=== PATIENT | male | born 1985 | race Caucasian/White ===

== ENCOUNTER → 2021-09-25 12:12 | Outpatient (BNVA) | payer MEDICARE, SELFPAY | PROVIDERS: Family Provider Nurse Practitioner Family; PCP Family Medicine; Visit Provider Family Medicine | DX: K92.1 Melena (principal); F10.10 Alcohol abuse, uncomplicated; R07.9 Chest pain, unspecified; Z82.49 Family history of ischemic heart disease and other diseases of the circulatory system; Z68.21 Body mass index [BMI] 21.0-21.9, adult; F17.210 Nicotine dependence, cigarettes, uncomplicated; Z13.6 Encounter for screening for cardiovascular disorders | CPT/HCPCS: 80053; 80061; 84443; 85025 ==

== ENCOUNTER 2023-12-08 13:16 | Observation (INO) | payer MEDICARE, MEDICAID, SELFPAY ==
[2023-12-08] VITALS (16 sets, daily range): BP systolic 144–181; BP diastolic 70–95; PULSE 50–76; RESP 16–19; TEMP 36.7–37.7; O2SAT 92–100; BMI 25.4
--- NOTE | 2023-12-08 13:19 | W.ED.LOWEXIN ---
Documented by User: RITA Lindsey 12/08/23 17:18 HPI - Extremity Injury (Lower) General: Chief Complaint: Wound/Laceration Stated Complaint: LEFT KNEE LAC S/P CHAIN SAW Time Seen by Provider: 12/08/23 13:19 History of Present Illness: 38-year-old male patient comes in with injury to the right knee. Patient has an approximate 7 cm laceration to the proximal aspect of the right knee. Injury occurred prior to arrival about 1 to 2 hours ago. Patient was brought in by EMS. Patient has IV established in the left AC and has been given a total of 200 mcg of fentanyl. Patient is resting well. Patient endorses the use of marijuana, tobacco, and alcohol. Patient does have a history of seizure disorder but has not had seizure in 4 years and is on no medications at this time. Review of Systems General: Reports: 10 or more systems reviewed and unremarkable except in HPI and below Skin/Breast: Reports: new lesions (right leg laceration) [facility]: Medical History (Updated 09/25/21 @ 13:02 by Michelle Rosado MD) AA (alcohol abuse) Seizure disorder Anxiety Depression Family History Father Hypertension Stroke Social History Smoking and tobacco/nicotine status: current every day tobacco/nicotine user (1/2 PPD) cigarettes Alcohol intake: current Alcohol intake frequency: 3 or more drinks per day Alcohol type: hard liquor Substance/Drug Use: current Substance/Drug use frequency: few times a week Other substance/drug use details: has medical [facility] Caregiver/support person: Yes Lives independently: Yes Household members: other Marital status: Single service: No Current occupational status: employed Current occupation: self employeed Current gender identity: Male Physical Exam Const: COMMON NORMALS: alert HENMT: COMMON NORMALS: normocephalic HEAD & SCALP: normocephalic Neck/C-Spine: COMMON NORMALS: full ROM Chest: COMMONS NORMALS: normal palpation of entire chest wall Resp: COMMON NORMALS: normal respiratory effort Cardio: COMMON NORMALS: regular rate RATE: regular rate GI: COMMON NORMALS: Soft to palpation PALPATION: Yes Soft to palpation Extremity: COMMON NORMALS: full ROM RIGHT LOWER EXTREMITY: Yes upper leg (7 cm laceration anterior distal) Neuro: SENSORIUM/ORIENTATION: Yes alert Skin: COMMON NORMALS: turgor normal GENERAL SKIN EXAM: turgor normal Procedures Laceration Laceration 1: Site: lower extremity Side (If applicable): right Size (cm): 7 Description: linear Depth: involves muscle layer Local Anesthetic: lidocaine 1% and with epi Amount of anesthesia used (mL): 14 Pre-repair: wound explored, irrigated extensively and deep structures intact (Superficial muscle, possible lateral patellar tendon) Skin layer closed with: nylon Size (cm): 4-0 Number of sutures: 18 Technique: simple, interrupted and horizontal mattress Course Vital Signs: Vital signs: Vital Signs Temperature 98.1 F 12/08/23 13:23 Pulse Rate 50 L 12/08/23 16:45 Respiratory Rate 19 H 12/08/23 16:35 Blood Pressure 155/95 12/08/23 16:45 Pulse Oximetry 97 12/08/23 16:45 Oxygen Delivery Me thod Room Air 12/08/23 16:45 MDM - Extremity Injury (Lower) Medical Decision Making 38-year-old male patient comes in for injury to the right proximal knee area. The horizontal lacerations approximate 7 cm. Patient was using his chainsaw this afternoon when it kicked back causing the injury. Patient has 2 areas of deep tissue injury 1 notes to be superficial to the muscle, other is lateral superficial to the patellar tendon area. Differential diagnosis includes but not limited to fracture, laceration, foreign body, open joint, tendon injury. X-ray noted deep suprapatellar wound with a trace of intra-articular air recommending CT for further evaluation. 1640, CT confirmed open joint, discussed with Dr. Mathew who agreed to see patient and take to surgery to irrigate the joint and repair. Patient been given 2 g of cefazolin and will be admitted and go to the OR for further evaluation and treatment. 1642, Dr. Heredia, ER attending, consulted for admission orders. Chart reviewed and patient discussed with midlevel. Agree with assessment and plan. Lab Data Radiology Impressions Knee X-Ray 12/08/23 13:23 IMPRESSION: 1. Deep suprapatellar wound with possible trace intra-articular air concerning for open joint. Consider correlation with CT for further detail. Orthopedic evaluation is recommended. Knee CT 12/08/23 14:49 IMPRESSION: 1. Deep laceration of the suprapatellar soft tissues with intra-articular air compatible with open joint. Orthopedic evaluation is recommended. Discharge Plan Discharge Admit Provider: Raymon Mathew Condition: Stable Coding Level of Care Code ED [facility] [employer] for [facility] Fwd Documented by User: Aleksandar Heredia DO 12/08/23 16:51 HPI - Extremity Injury (Lower) General: Chief Complaint: Wound/Laceration Stated Complaint: LEFT KNEE LAC S/P CHAIN SAW Time Seen by Provider: 12/08/23 13:19 PFSH ED PFSH: Medical History (Updated 09/25/21 @ 13:02 by Michelle Rosado MD) AA (alcohol abuse) Seizure disorder Anxiety Depression Family History Father Hypertension Stroke Social History Smoking and tobacco/nicotine status: current every day tobacco/nicotine user (1/2 PPD) cigarettes Alcohol intake: current Alcohol intake frequency: 3 or more drinks per day Alcohol type: hard liquor Substance/Drug Use: current Substance/Drug use frequency: few times a week Other substance/drug use details: has medical [facility] Caregiver/support person: Yes Lives independently: Yes Household members: other Marital status: Single service: No Current occupational status: employed Current occupation: self employeed Current gender identity: Male Course Vital Signs: Vital signs: Vital Signs Temperature 98.1 F 12/08/23 13:23 Pulse Rate 50 L 12/08/23 16:45 Respiratory Rate 19 H 12/08/23 16:35 Blood Pressure 155/95 12/08/23 16:45 Pulse Oximetry 97 12/08/23 16:45 Oxygen Delivery Me thod Room Air 12/08/23 16:45 MDM - Extremity Injury (Lower) Medical Decision Making Chart reviewed and patient discussed with midlevel. Agree with assessment and plan. Lab Data Radiology Impressions Knee X-Ray 12/08/23 13:23 IMPRESSION: 1. Deep suprapatellar wound with possible trace intra-articular air concerning for open joint. Consider correlation with CT for further detail. Orthopedic evaluation is recommended. Knee CT 12/08/23 14:49 IMPRESSION: 1. Deep laceration of the suprapatellar soft tissues with intra-articular air compatible with open joint. Orthopedic evaluation is recommended. All radiology interpretation(s) finalized by discharge Discharge Plan Discharge Admit Provider: Raymon Mathew Condition: Stable Coding Level of Care Code ED [facility] [employer] for Kishan Hsu
--- NOTE | 2023-12-08 13:23 | XRR_ITS ---
PROCEDURE INFORMATION: Exam: XR Right Knee Exam date and time: 12/08/2023 1:42 PM Age: 38 years old Clinical indication: Injury or trauma; Other: Cut by chain saw; Laceration; Patella or knee; Right; Foreign body involvement not specified TECHNIQUE: Imaging protocol: Radiologic exam of the right knee. Views: 3 views. COMPARISON: No relevant prior studies available. FINDINGS: Bones/joints: No evidence of acute fracture or subluxation. No evidence of joint effusion. Questionable trace intra-articular air. Soft tissues: Deep laceration of the suprapatellar volar soft tissues measuring up to approximately 5.5 cm in diameter. XR/XR knee RT 3V* [id number] IMPRESSION: 1. Deep suprapatellar wound with possible trace intra-articular air concerning for open joint. Consider correlation with CT for further detail. Orthopedic evaluation is recommended.
--- NOTE | 2023-12-08 13:41 | PC.PHAR ---
pt states he takes care of his own medications-pt states he takes fluoxetine 40mg four or five times a week ext shows last filled 02/09/23 90d/s 40mg daily-pt states takes no other prescription medications
[2023-12-08] MEDS: tetanus-dipt-pertussis 0.5 mL SDV IM (13:42)
[2023-12-08] MEDS: lidocaine-epi 1% 20 mL INJ INJECTION (13:52)
--- NOTE | 2023-12-08 13:52 | PC.NURSE ---
LIDOCAINE ADMINISTERED BY RITA RESENDIZ.
--- NOTE | 2023-12-08 14:49 | CTR_ITS ---
PROCEDURE INFORMATION: Exam: CT Right Lower Extremity With Contrast, Knee Exam date and time: 12/08/2023 3:33 PM Age: 38 years old Clinical indication: Injury or trauma; Other: Chainsaw; Laceration; Patella or knee; Right; Foreign body involvement not specified; Additional info: Injury, possible open joint TECHNIQUE: Imaging protocol: CT of the right lower extremity with intravenous contrast was performed. Exam focused on the knee. Radiation optimization: All CT scans at this facility use at least one of these dose optimization techniques: automated exposure control; mA and/or kV adjustment per patient size (includes targeted exams where dose is matched to clinical indication); or iterative reconstruction. Contrast material: OMNI 350; Contrast volume: 75 ml; Contrast route: INTRAVENOUS (IV); COMPARISON: CR (LOW EXM, ) 12/08/2023 1:42 PM RADIATION DOSE METRICS: Total DLP (mGy-cm): 376.14 FINDINGS: Bones/joints: There are droplets of intra-articular air compatible with open joint (for example, image 40 of series 5). Trace-small effusion. No evidence of fracture or subluxation. Soft tissues: Laceration of the suprapatellar soft tissues involving the vastus medialis. No discrete fluid collection or hematoma. There appears to have been interval closure of the wound. CT/CT knee RT w con [id number] IMPRESSION: 1. Deep laceration of the suprapatellar soft tissues with intra-articular air compatible with open joint. Orthopedic evaluation is recommended.
[2023-12-08] MEDS: fentaNYL 50 mcg/mL INJ 2mL 75 MCG IVP (15:26)
[2023-12-08] MEDS: ceFAZolin 2,000 MG in sodium chloride 0.9% (plus) 50 ML 100 MG IV (15:41)
[2023-12-08] MEDS: HYDROmorphone 1 mg/mL INJ 1 mL IVP (16:35)
[2023-12-08] MEDS: diphenhydrAMINE 50 mg/mL SDV 1mL 25 MG IVP (16:37)
--- NOTE | 2023-12-08 17:03 | PM.HP ---
Providers/Chief Complaint Primary Care Provider: Michelle Rosado MD Chief Complaint: LEFT KNEE LAC S/P CHAIN SAW History of Present Illness H&P obtained from patient as well as through ED notes Jean Paul Gaston is a 38-year-old male patient comes in with injury to the right knee. Patient has an approximate 7 cm laceration to the proximal aspect of the right knee. Injury occurred prior to arrival about 1 to 2 hours ago. Patient was brought in by EMS. Patient has IV established in the left AC and has been given a total of 200 mcg of fentanyl. Patient is resting well. Patient endorses the use of marijuana, tobacco, and alcohol. Patient does have a history of seizure disorder but has not had seizure in 4 years and is on no medications at this time. Patient allegedly last ate around 12 1:00 and had a hamburger. Patient was tetanus up-to-date, received IV antibiotics in the emergency department appropriate workup demonstrated CT scan showed intra-articular air consistent with traumatic arthrotomy. Orthopedics was consulted for evaluation and treatment recommendations. Denies any other issues or injuries at this time. Review of Systems General: Reports: 10 or more systems reviewed and unremarkable except in HPI and below Medications/Allergies Home Medications Medication Instructions Recorded Confirmed Last Taken Type mhwcphc-yunblrclyqdoo-mwcovejv 250 2 tab PO Q6H PRN Migraine Headache 12/08/23 12/08/23 12/06/23 History mg-250 mg-65 mg tablet (Excedrin Migraine) fluoxetine 40 mg capsule 40 mg PO .4 OR 5 TIMES A WEEK 12/08/23 12/08/23 Unknown History Allergies Allergy/AdvReac Type Severity Reaction Status Date / Time hydrocodone Allergy Intermediate hives Verified 09/25/21 10:56 ,itching Opioids - Morphine Analogues Allergy Intermediate rash,hives Verified 09/25/21 10:56 PFSH Acute PFSH: Medical History (Updated 12/08/23 @ 21:02 by Raymon Mathew DO) AA (alcohol abuse) Seizure disorder Anxiety Depression Family History Father Hypertension Stroke Social History Smoking and tobacco/nicotine status: current every day tobacco/nicotine user (1/2 PPD) cigarettes Alcohol intake: current Alcohol intake frequency: 3 or more drinks per day Alcohol type: hard liquor Substance/Drug Use: current Substance/Drug use frequency: few times a week Other substance/drug use details: has medical [employer] card Caregiver/support person: Yes Lives independently: Yes Household members: other Marital status: Single service: No Current occupational status: employed Current occupation: self employeed Current gender identity: Male Vitals/I&O/Wt Last Vital Signs Temp 98.1 F 12/08/23 13:23 Pulse 63 12/08/23 15:28 Resp 19 H 12/08/23 16:35 BP 181/84 12/08/23 15:28 Pulse Ox 100 12/08/23 15:28 O2 Del Method Room Air 12/08/23 15:28 Weight last 48 hrs Weight 172 lb Physical Exam Narrative: Orthopedic examination: Examination right lower extremity demonstrates patient has a laceration over 7 cm over the proximal portion of the patella extending over the quad tendon mechanism. This is close there is mild swelling and edema noted in this area. Patient has diffuse tenderness palpation of the knee. Distally has some mild paresthesias but distally into the foot gross motor and sensory is intact is able to wiggle toes plantarflex and dorsiflex ankle sensations intact light touch distally at the tibial saphenous sural as well as superficial and deep peroneal nerve distribution. When asked to perform straight leg raise he has significant pain and inability to perform a complete straight leg raise in the bed today. Concerning for either possible quad injury versus pain from laceration. Distal pulses are palpable compartment soft compressible Data 12/08/23 19:16 12/08/23 19:[address]: My impression: CT demonstrates intra-articular air as of well as violation of suprapatellar soft tissue. Reviewed the CT scan does appear on the lateral femoral condyle just on the lateral aspect of the trochlea there is a small bony fragmentation consistent with likely chainsaw injury. No metallic foreign bodies appreciated. Radiologist's impression: Patient: Jean Paul Gaston Unit #: [id number] : 1985 Age/Sex: 38 / M ADM Date: 12/08/23 Loc: ER Room/Bed: Attending Dr: Ordering Provider/Ordering MD: Jaleel Hathaway NP Date of Service: 12/08/23 Procedure(s): CT knee RT w con [id number] Accession Number(s): [id number] Report Number: [id number] PROCEDURE INFORMATION: Exam: CT Right Lower Extremity With Contrast, Knee Exam date and time: 12/08/2023 3:33 PM Age: 38 years old Clinical indication: Injury or trauma; Other: Chainsaw; Laceration; Patella or knee; Right; Foreign body involvement not specified; Additional info: Injury, possible open joint TECHNIQUE: Imaging protocol: CT of the right lower extremity with intravenous contrast was performed. Exam focused on the knee. Radiation optimization: All CT scans at this facility use at least one of these dose optimization techniques: automated exposure control; mA and/or kV adjustment per patient size (includes targeted exams where dose is matched to clinical indication); or iterative reconstruction. Contrast material: OMNI 350; Contrast volume: 75 ml; Contrast route: INTRAVENOUS (IV); COMPARISON: CR (LOW EXM, ) 12/08/2023 1:42 PM RADIATION DOSE METRICS: Total DLP (mGy-cm): 376.14 FINDINGS: Bones/joints: There are droplets of intra-articular air compatible with open joint (for example, image 40 of series 5). Trace-small effusion. No evidence of fracture or subluxation. Soft tissues: Laceration of the suprapatellar soft tissues involving the vastus medialis. No discrete fluid collection or hematoma. There appears to have been interval closure of the wound. CT/CT knee RT w con [id number] IMPRESSION: 1. Deep laceration of the suprapatellar soft tissues with intra-articular air compatible with open joint. Orthopedic evaluation is recommended. A&P Assessment and plan (1) Laceration of knee, right, complicated: (2) Femoral distal fracture: Fracture appears to be incomplete in nature and just involves the lateral aspect and tip of the trochanter off the lateral femoral condyle. Rest of the CT scans this is not appreciated on the coronal or sagittal cuts is only seen on the axial. Consistent with likely initial cut from a chainsaw. Plan Maintain n.p.o. status CT scan reviewed X-rays reviewed Admit to the orthopedic service Started on IV antibiotics in the emergency department Tetanus up-to-date Plan to go to the OR urgently for a right knee irrigation debridement possible quadricep tendon repair. MDM: Pleasant 38-year-old male who sustained a laceration secondary to a chainsaw to the right knee CT scan emergency department demonstrates traumatic arthrotomy he last ate around 1 PM waited appropriate 8 hours for digestion to decrease risk of aspiration as this does need to be performed in an urgent fashion but not emergent. He is already received empiric antibiotics within his initial seen in the emergency department. Will continue this for hours. All return to floor postoperatively. Plan will be to proceed with a right knee irrigation agreement with possible quad tendon repair. He understands the ins and outs of procedure the risk benefits complications alternatives with surgery. Risk of surgery include but not limited to make a better make it worse injury nerves vessels or tendons, knee arthrofibrosis, persistent pain, infection. Understanding his risk of surgery elects to proceed all questions been answered at this time. Attestations Medical Necessity Statement*: Right knee traumatic arthrotomy Coding Level of Care Code Acute Code for [facility] Fwd Diagnoses Laceration of knee, right, complicated S81.011A Femoral distal fracture S72.409A Time Spent (min) 55
--- NOTE | 2023-12-08 18:38 | PC.NURSE ---
Abbey RN came to this nurse and stated patient was becoming more agitated and wanting to smoke. This nurse called security and proceeding to patient's room. This nurse explained that we are a tobacco free facility and that we could provide a nicotine patch until patient was discharged. Patient refused. It was explained by this nurse and security that if patient left grounds to smoke, he would have to sign out AMA. After lots of explanation, patient stated he understood. Patient allowed this nurse to complete his admission. He stated he has not ate or drank since around 1230. Patient is currently in the shower getting cleaned up before surgery.
[2023-12-08 19:39] LABS: Basophils % 0.1 %; Eosinophils % 0.1 %; Hematocrit 44.6 % (37-53); Lymphocytes # 1.3 10^3/uL (0.8-4.8); Lymphocytes % 8.6 %; Mean Corpuscular HGB Conc 35.2 g/dL (30-55); Mean Corpuscular Hemoglobin 32.8 pg (27-33); Mean Corpuscular Volume 93.1 fl (82-101); Mean Platelet Volume 11.3 fL (7.4-10.4); Monocytes # 1.3 10^3/uL (0.2-0.9); Monocytes % 8.2 %; Neutrophils # 12.67 10^3/uL (1.8-7.7); Neutrophils % 82.7 %; Nucleated Red Blood Cells % 0 %; Platelet Count 223 10^3/cmm (157-399); Red Blood Count 4.79 10^6/uL (3.85-5.65); Red Cell Distribution Width 11.9 % (12.1-15.1); White Blood Count 15.31 10^3/uL (3.29-11.43)
[2023-12-08 19:59] LABS: Anion Gap 18.7 (5-19); Blood Urea Nitrogen 13 mg/dL (6-20); Calcium 9.5 mg/dL (8.5-10.5); Carbon Dioxide 21 mmol/L (22-29); Chloride 101 mmol/L (98-107); Creatinine Clr Calc Pharmacy 118.1671; Glomerular Filtration Rate 95.5 mL/min (90-130); Glucose 115 mg/dL (65-115); Osmolality Calculated 285 mOsm/kg (285-295); Potassium 3.7 mmol/L (3.5-5.1); Sodium 137 mmol/L (136-145)
[2023-12-08] MEDS: acetaminophen 1,000 MG/100 ML PIGGYBACK 400 MG IV (20:23)
[2023-12-08] MEDS: sodium chloride 0.9% 1,000 ML 30 ML IV (20:24)
--- NOTE | 2023-12-08 20:38 | P.ANESASSM_ITS ---
Pre-Anesthetic Assessment Height/Weight: Height 1.75 m Weight 78.018 kg Temp Pulse Resp BP Pulse Ox O2 Del Method 99.8 F H 56 L 17 149/85 95 Room Air 12/08/23 20:14 12/08/23 20:14 12/08/23 20:14 12/08/23 20:14 12/08/23 20:14 12/08/23 20:14 Preop Diagnosis: Right Knee traumatic arthrotomy Operation Date: 12/08/23 21:10 Proposed Procedures p Debridement Lower Extremity(Right) - Raymon Mathew DO Familial anesthetic complications: None Was Beta Kendy taken within 24 hours: N/A Was Clonidine taken within 24 hours: N/A Last intake: Intake (drank water from bathroom faucet at approx 1900) Last Liquid Date 12/08/23 Last Liquid Time 13:00 Last Solid Date 12/08/23 Last Solid Time 12:30 Social Alcohol and Tobacco marijuana this morning Exam alert, oriented x 3, clear to auscultation bilaterally and regular rate & rhythm Airway Mallampati: Class I Dentition: full Neuropsych Hx seizures, none in last 4 years, not an antiepileptics, states its controlled with marijuana Anesthetic Plan ASA status: 2 Anesthesia: General Risk of > 500 ml blood loss (7ml/kg in children): No Medications/Allergies Home Medications Medication Instructions Recorded Confirmed Last Taken Type ymkhgdr-ldgjwdralevkw-sgrddcoh 250 2 tab PO Q6H PRN Migraine Headache 12/08/23 12/08/23 12/06/23 History mg-250 mg-65 mg tablet (Excedrin Migraine) fluoxetine 40 mg capsule 40 mg PO .4 OR 5 TIMES A WEEK 12/08/23 12/08/23 Unknown History Allergies Allergy/AdvReac Type Severity Reaction Status Date / Time hydrocodone Allergy Intermediate hives Verified 09/25/21 10:56 ,itching Opioids - Morphine Analogues Allergy Intermediate rash,hives Verified 09/25/21 10:56 Current Medications Generic Name Dose Route Start Last Admin Trade Name Freq PRN Reason Stop Dose Admin Sodium Chloride 1,000 mls @ 30 mls/hr 12/08/23 20:15 12/08/23 20:24 Sodium Chloride 0.9% IV 12/09/23 20:14 30 mls/hr .Q24H CHRISTOPH Administration PFS Anesthesia Medical History (Updated 09/25/21 @ 13:02 by Michelle Rosado MD) AA (alcohol abuse) Seizure disorder Anxiety Depression Family History Father Hypertension Stroke Social History Smoking and tobacco/nicotine status: current every day tobacco/nicotine user (1/2 PPD) cigarettes Alcohol intake: current Alcohol intake frequency: 3 or more drinks per day Alcohol type: hard liquor Substance/Drug Use: current Substance/Drug use frequency: few times a week Other substance/drug use details: has medical [employer] card Caregiver/support person: Yes Lives independently: Yes Household members: other Marital status: Single service: No Current occupational status: employed Current occupation: self employeed Current gender identity: Male Data Anesthesia 12/08/23 19:16 12/08/23 19:16 Short CBC 12/08/23 Range/Units 19:16 WBC 15.31 H (3.29-11.43) 10^3/uL Hgb 15.70 (11.27-16.99) g/dL Hct 44.6 (37-53) % MCV 93.1 (82-101) fl Plt Count 223 (157-399) 10^3/cmm Neut % (Auto) 82.7 % Neut # (Auto) 12.67 H (1.8-7.7) 10^3/uL BMP 12/08/23 19:16 Sodium 137 Potassium 3.7 Chloride 101 Carbon Dioxide 21 L BUN 13 Creatinine 0.9 Glucose 115 Calcium 9.5 Cardiac Studies: 2 No Data to Display
[2023-12-08] MEDS: vancomycin 1,000 MG SDV 1000 MG INTRA-ARTI (21:30)
[2023-12-08] MEDS: ROPivacaine 0.5% SDV 30 mL 150 MG INJECTION (21:35)
[2023-12-08] MEDS: lidocaine 1% INJ 10 mL (per mL) 30 ML INTRADERMA (21:35)
--- NOTE | 2023-12-08 22:49 | W.PM.BPON ---
Date of Procedure: 12/08/2023 Surgeon: Raymon Mathew DO Etiquette Teacher(s): None Procedure(s) performed: Right knee irrigation and debridement (15 cm x 12 cm x 2 cm) Right knee joint loose body removal Right knee quadricep tendon repair Findings of the procedure(s): Patient was found to have quadricep tendon laceration right at the musculotendinous junction forming of the quad tendon this did cut a little bit into the VMO but the VMO was intact as well as the lateralmost 15% of the vastus lateralis was intact. As result a partial quad tendon tear was noted. Patient did have a small loose body inside the joint this was subsequently removed underwent thorough irrigation debridement with 9 L of normal saline. He then subsequently underwent quad tendon repair as well as primary closure tolerated this procedure without issues or complications placed in a [place] brace locked in full extension. Will return to floor postoperatively for IV antibiotics. Estimated blood loss: 5 mL Specimen(s) removed: Loose body in the joint removed Post-operative diagnosis: Right knee traumatic arthrotomy with partial quadricep tendon tear as well as loose body in knee joint.
--- NOTE | 2023-12-08 22:52 | PM.OP ---
Operative Report Date of procedure: December 08, 2023 Pre-op diagnosis: Right knee traumatic arthrotomy secondary to chainsaw Post-op diagnosis: Right knee traumatic arthrotomy Right knee quad tendon tear Right knee joint loose body Procedure done: Right knee irrigation and debridement (15 cm x 12 cm x 2 cm) Right knee joint loose body removal Right knee quadricep tendon repair Specimens removed/disposition: Small intra-articular cartilaginous and bony fragment loose body removed Surgeon: Raymon Mathew DO Administrative Clerk: None Anesthesia: General Estimated blood loss: 5 mL 70 minutes IV fluids: 800 mL Complications: None Findings: See operative report narrative Condition: stable Disposition: floor Brief History: Patient is a 38-year-old gentleman who sustained a chainsaw laceration to the right knee proximal to the patella. Was seen evaluated the emergency department underwent initial I&D tetanus up-to-date antibiotics as well as appropriate workup to rule out intra-articular extension on CT scan was confirmed to have intra-articular extension as result orthopedics was consulted. Patient had eaten at 1:00 as result in order to limit aspiration risks patient was scheduled for 9 PM for right knee irrigation debridement with possible quad tendon repair. He was seen evaluated by orthopedics and he was found to be unable to perform a straight leg raise. He has been on IV antibiotics. At this point time we talked about treatment options for his nonoperative and operative intervention. Given intra-articular extension recommend formal irrigation debridement as well as evaluation of his extensor mechanism he understands the ins and outs of the procedure the risk benefits complication alternatives of surgery. Risk of surgery include not limited to make a better make it worse, infection, failure of possible tendon repair, persistent pain, knee arthrofibrosis, wound issues. Understanding risk of surgery elects proceed all questions answered at this time. Procedure: Patient seen evaluate in the preoperative holding area. Consent was reviewed and signed with patient. Correct extremity was then subsequently marked. Patient was then seen evaluated by anesthesia once cleared for surgery was taken back to the operative suite. He was transported on the OR table in supine position all bony prominences well-padded patient appropriate secured to the bed. He then subsequently underwent anesthesia per the anesthesia department once properly anesthetized a nonsterile tourniquet was applied to the right thigh. The right lower extremity was then prepped and draped standard orthopedic fashion final timeout performed. Patient received appropriate preoperative antibiotics. Esmarch tourniquet was used to exsanguinate right lower extremity and tourniquet was insufflated to 250 mmHg Patient had a oblique incision over the proximal body of the proximal portion of the superior to the patella. An oblique incision I then subsequently removed all the sutures and used Metzenbaums to open up the laceration for exploration patient was found to have a partial quadricep tendon tear and intra-articular extension. At this point time for better visualization and mobilization as well as for repair I extended the incision both proximally and distally. Full-thickness skin flaps as well as to develop planes over the fascia for later closure. At this point in time I then subsequently identified the traumatic arthrotomy and violation of the quadricep tendon. Patient was found to have 15% of the vastus lateralis intact laterally and in roughly 90% of the VMO was still intact. This point through portion of the quad tendon proximally at the musculotendinous junction as this transitions from muscle belly and tendon. There was amendable proximal and distal stumps that I feel could help with a [id number] repair. At this point in time and then perform digital palpation of the joint and the area where there was a small incomplete fracture/count of the distal femur aspect. There was a small bony cartilaginous and fragmentation loose body in the joint which was subsequently removed I then utilized digital palpation to palpate for any further violation of the bony anatomy or cartilage lesion and the rest was found to be intact and there is no other loose bodies. At this point in time it started to be gone thoroughly irrigation of the knee of 6 L Pulsavac normal saline of the joint at this point in time I then utilized a rongeur as well as sharp scalpel excision and Metzenbaum dissection scissors to sharply excise any nonviable and gross contamination of the right knee the wound extended from 15 cm x 12 cm x 2 cm. I debrided skin subcutaneous tissue fascia tendon muscle and bone this was debrided of all nonviable tissue as well as any gross contamination. There was a small fragment of genes from patient's outer clothing that was in the wound bed as well. Once I satisfied with this debridement then thoroughly irrigated once more Pulsavac for an additional 3 more liters of normal saline for total of 9 L normal saline throughout the knee. At this point in time satisfied with the irrigation and debridement proceeded with quadricep tendon repair. Subsequently placed vancomycin powder deep within the wound bed and then perform [id number] repair of the quadricep tendon tear with #5 Ethibond suture in interrupted [id number] fashion this had excellent tendon reapproximation as well as excellent tendon tensioning. Tourniquet deflated hemostasis satisfactory I then oversewed this with a #2 Ethibond in standard running fashion which ultimately closed the entirety of the arthrotomy. I then irrigated once more vancomycin powder over the superficial wound bed and closed this in interrupted fashion of 0 Vicryl 2-0 Vicryl and interrupted horizontal mattress PDS sutures. Incision was then covered with Xeroform 4 x 4's ABD Curlex soft roll and a 6 inch Fco wrap. Knee immobilizer was placed in a Gala locked in full extension and appropriately sized. Patient was awake from anesthesia and taken to PACU in stable condition Disposition: Patient taken to PACU in stable condition recovering well placed in a knee immobilizer will be strict full knee extension to protect quad tendon repair. Patient should utilize crutches and only be toe-touch weightbearing to the right lower extremity. Will admit him to the floor postoperatively to continue IV antibiotics to receive IV dosing for 24 hours and then plan for him to discharge tomorrow. Patient understands and agrees with current plan. Questions answered.
--- NOTE | 2023-12-08 23:30 | ANE.PACU2 ---
Inpatient post-anesthesia follow up: Airway intact: Yes Vital signs: Temperature 98.2 F Pulse Rate 60 Respiratory Rate 17 Blood Pressure 132/82 Pulse Oximetry 96 Oxygen Delivery Me thod Room Air Oxygen Flow Rate 6 Fraction of Inspir ed Oxygen Hydration adequate: Yes Nausea and vomiting: No Pain level: 1 Mental status: Baseline
[2023-12-09] VITALS (7 sets, daily range): BP systolic 123–159; BP diastolic 62–88; PULSE 52–64; RESP 16–22; TEMP 36.4–37.3; O2SAT 92–98
[2023-12-09] MEDS: acetaminophen 500 mg Tablet 1000 MG PO ×2 (00:08→07:43)
[2023-12-09] MEDS: sodium chloride 0.9% 1,000 ML 75 ML IV (00:09)
[2023-12-09] MEDS: ceFAZolin 2,000 MG in sodium chloride 0.9% (plus) 50 ML 100 MG IV ×2 (00:09→10:40)
[2023-12-09] MEDS: TRAMadol 50 mg Tablet PO ×2 (00:16→07:43)
[2023-12-09] MEDS: docusate sodium 100 mg Capsule PO (09:29)
[2023-12-09] MEDS: aspirin 325 mg EC Tablet PO (09:29)
--- NOTE | 2023-12-09 10:26 | P.DS_ITS ---
Discharge Providers Date of Admission: 12/08/23 16:45 Date of Discharge: December 09, 2023 Attending Provider at Admission: Raymon Mathew DO Attending Provider at Discharge: Raymon Mathew DO Primary Care Provider: Michelle Rosado MD Diagnoses at Discharge Discharge Diagnosis (1) Laceration of knee, right, complicated: Status: Acute (2) Femoral distal fracture: Status: Acute Reason for Visit Reason for Visit: Right KNEE LAC S/P CHAIN SAW Brief History: Traumatic right knee arthrotomy Hospital Course Hospital Course Patient presented to the emergency department after a chainsaw injury to the right knee had a traumatic arthrotomy identified emergency department tetanus up-to-date received appropriate antibiotics empirically in the emergency department he then subsequently taken back to the OR in the evening in urgent fashion for right knee irrigation and debridement with possible quad tendon repair. His quadricep tendon was found to have disruption underwent repair during this procedure. His procedure went as planned without issues or complications please refer to op notes for details. He subsequently was admitted to the floor postoperatively for pain control work with therapy as well as for receiving 24 hours of IV antibiotics. Patient was seen evaluated on postoperative day 1 he is progressing appropriately with therapy pain was controlled. Patient received IV antibiotics at this point time was found to be stable on postoperative day 1 for discharge home. Will be discharged home on pain medication as well as DVT prophylaxis as well as empiric antibiotics p.o. For infection prophylaxis. Patient in a Gala brace locked in extension and only toe-touch weightbearing right lower extremity maintain these restrictions throughout his hospitalization as well as worked appropriately with therapy. Was discharged on postoperative day 1 home will follow-up in the orthopedic office in 2 weeks for evaluation and having sutures removed patient understands and agrees with current plan. Questions answered. Physical Exam Narrative: Examination of right lower extremity Gala brace on in place locked in full extension no range of motion of any tested secondary to recent repair and surgery. Distal pulses are palpable toes are warm well-perfused brisk capillary refill less than 2 seconds patient is able to wiggle toes plantarflex and dorsiflex ankle sensations intact to light touch distally. Compartments are soft compressible. Discharge Data Studies Completed and Pending Completed Studies During Hospitalization Category Date Time Status CT knee RT w con [id number] Stat Cat Scan 12/08/23 14:49 Completed XR knee RT 3V* [id number] Stat Exams 12/08/23 13:23 Completed Radiology Impressions Knee X-Ray 12/08/23 13:23 IMPRESSION: 1. Deep suprapatellar wound with possible trace intra-articular air concerning for open joint. Consider correlation with CT for further detail. Orthopedic evaluation is recommended. Knee CT 12/08/23 14:49 IMPRESSION: 1. Deep laceration of the suprapatellar soft tissues with intra-articular air compatible with open joint. Orthopedic evaluation is recommended. Laboratory Results WBC 15.31 10^3/uL (3.29-11.43) H 12/08/23 19:16 RBC 4.79 10^6/uL (3.85-5.65) 12/08/23 19:16 Hgb 15.70 g/dL (11.27-16.99) 12/08/23 19:16 Hct 44.6 % (37-53) 12/08/23 19:16 MCV 93.1 fl (82-101) 12/08/23 19:16 MCH 32.8 pg (27-33) 12/08/23 19:16 MCHC 35.2 g/dL (30-55) 12/08/23 19:16 RDW 11.9 % (12.1-15.1) L 12/08/23 19:16 Plt Count 223 10^3/cmm (157-399) 12/08/23 19:16 MPV 11.3 fL (7.4-10.4) H 12/08/23 19:16 Neut % (Auto) 82.7 % 12/08/23 19:16 Lymph % (Auto) 8.6 % 12/08/23 19:16 [place] % (Auto) 8.2 % 12/08/23 19:16 Eos % (Auto) 0.1 % 12/08/23 19:16 Baso % (Auto) 0.1 % 12/08/23 19:16 Neut # (Auto) 12.67 10^3/uL (1.8-7.7) H 12/08/23 19:16 Lymph # (Auto) 1.3 10^3/uL (0.8-4.8) 12/08/23 19:16 [place] # (Auto) 1.3 10^3/uL (0.2-0.9) H 12/08/23 19:16 Eos # (Auto) 0.0 10^3/uL (0.0-0.8) 12/08/23 19:16 Baso # (Auto) 0.0 10^3/uL (0.0-0.1) 12/08/23 19:16 Nucleated RBC % (auto) 0 % 12/08/23 19:16 Nucleated RBCs # 0.0 /100WBC 12/08/23 19:16 Sodium 137 mmol/L (136-145) 12/08/23 19:16 Potassium 3.7 mmol/L (3.5-5.1) 12/08/23 19:16 Chloride 101 mmol/L (98-107) 12/08/23 19:16 Carbon Dioxide 21 mmol/L (22-29) L 12/08/23 19:16 Anion Gap 18.7 (5-19) 12/08/23 19:16 BUN 13 mg/dL (6-20) 12/08/23 19:16 Creatinine 0.9 mg/dL (0.7-1.2) 12/08/23 19:16 GFR Calculation 95.5 mL/min (90-130) 12/08/23 19:16 Glucose 115 mg/dL (65-115) 12/08/23 19:16 Calculated Osmolality 285 mOsm/kg (285-295) 12/08/23 19:16 Calcium 9.5 mg/dL (8.5-10.5) 12/08/23 19:16 Vitals Last Vital Signs Temp 97.6 F 12/09/23 07:33 Pulse 64 12/09/23 07:33 Resp 22 H 12/09/23 07:33 BP 159/88 12/09/23 07:33 Pulse Ox 98 12/09/23 07:33 O2 Del Method Room Air 12/09/23 07:33 O2 Flow Rate 6 12/08/23 23:01 Discharge Plan Discharge Patient Disposition: Home Condition: Stable Prescriptions: New aspirin 325 mg tablet 325 mg PO DAILY 14 Days Qty: 14 0RF Calcium 600 + D(3) 600 mg-10 mcg (400 unit) tablet 1 tab PO DAILY 30 Days Qty: 30 0RF ondansetron 4 mg tablet,disintegrating 4 mg PO Q8H 3 Days Qty: 9 0RF cephalexin 500 mg capsule 500 mg PO TID 10 Days Qty: 30 0RF tramadol 100 mg tablet 100 mg PO Q8H PRN (Reason: pain) 7 Days Qty: 21 0RF Continued fluoxetine 40 mg capsule 40 mg PO .4 OR 5 TIMES A WEEK Excedrin Migraine 250-250-65 mg Tablet 2 tab PO Q6H PRN (Reason: Migraine Headache) Discharge Orders: Discharge Order (Routine); Ordered 12/09/23 Ordered By: Raymon Mathew Other Ambulatory Orders: DME: Cane/ Crutches (Order) Location: None Selected Ordered By: Raymon Mathew Referrals: Raymon Mathew DO [Physician] - 12/26/23 1:15 pm Michelle Rosado MD [Primary Care Provider] - 12/16/23 2:00 pm Discharge Diet: Advance as tolerated Discharge Activity: Limit activity as instructed and Use walker/crutches as instructed Patient Instructions: Puncture Wound (DC), Abuse of Alcohol (DC), Debridement (DC), Tendon Repair (DC), Opioid Safety Activity Restrictions/Additional Instructions: Orthopedic discharge instructions: Patient should be toe-touch weightbearing to right lower extremity Maintain [place] brace locked in full extension Strict no range of motion to the knee to protect quad tendon repair Take antibiotics as prescribed Take pain medication as prescribed Take aspirin daily as prescribed for blood clot prevention Supplement with Citracal vitamin D for bone health and healing Take antinausea medication as needed Ice and elevate as needed Follow-up in orthopedic office in 2 weeks Contact the office for any questions or concerns Discharge Attestations Time Spent in Discharge Care*: greater than 30 min Quality Metrics Clinical Quality Measures [ No reported AMI, CVA or VTE this stay] Coding Level of Care Code Acute Code for Chg Fwd Diagnoses Laceration of knee, right, complicated S81.011A Femoral distal fracture S72.409A Time Spent (min) 35
--- NOTE | 2023-12-09 11:00 | PC.CHAP ---
Pastoral Care Encounter/Spiritual Assessment Type of Contact [] Declined core mounter visit [] Patient/Family/Request visit [] Outpatient visit [] Follow-up visit [] Physician referral [] Code/Alert [x] Routine visit [] Staff referral [] Actively dying [] Patient sleeping [] Family support [] [x] Out of room [] Palliative care [] [] Receiving care in room [] Pre-surgical visit [] Trauma [] Long length of stay [] ICU visit [] Other: Relational/Emotional Strength [] Patient feels connected with others/family/visitors/staff [] Distress [] Loneliness/isolation [] Abandonment Spirituality of Patient [] Person of Bety [] Attends Gnosticist of their Bety [] Believes in Prayer [] Reads Bible or Faith materials [] There are Spiritual issues to be addressed Playground Attendant Interventions [] Prayer [] Active listening [] Non-anxious presence [] Spiritual/emotional support [] Crisis/trauma care [] Spiritual counseling [] Bereavement support [] Provided bereavement packet [] Provided Bible/devotional materials [] Provided toy/stuffed animal, coloring book to patient or family member [] Provided Communion [] Anointing/[place] [] Salvation [] Completed spiritual assessment [] Other: Impact on Illness or Injury [] Angry [] Fearful [] Anxious [] Often cries [] Exhaustion [] Unable to work [] Unable to attend buddhist [] Unable to walk/stand [] Unable to read [] Unable to drive [] Unable to eat/drink [] Unable to sleep [] Unable to be with family [] Patient intubated [] Other: Summary Time spent with patient
--- NOTE | 2023-12-09 13:10 | PC.NURSE ---
Discussed discharge instructions with patient. Toe touch only on right foot. New medications, continued medications and follow up appointments. Patient verbalized understanding.
--- NOTE | 2023-12-09 13:12 | PC.NURSE ---
IV pulled with catheter tip intact. Patient tolerated well.
== END 2023-12-09 12:45 | disposition home or self-care (01) ==
LOC: ER 16:55 → MEDSURG 17:18
PROVIDERS: Admitting Provider Student in an Organized Health Care Education/Training Program; Emergency Provider Nurse Practitioner Family; PCP Family Medicine; Visit Provider Student in an Organized Health Care Education/Training Program
PROC: (CPT 27331; principal; 2023-12-08 21:00)
PROC: (CPT 27331; 2023-12-08 21:00)
PROC: (CPT 27331; 2023-12-08 21:00)
DX: S81.011A Laceration without foreign body, right knee, initial encounter (principal); S72.401A Unspecified fracture of lower end of right femur, initial encounter for closed fracture; S76.111A Strain of right quadriceps muscle, fascia and tendon, initial encounter; W29.3XXA Contact with powered garden and outdoor hand tools and machinery, initial encounter; F17.210 Nicotine dependence, cigarettes, uncomplicated; M23.41 Loose body in knee, right knee
CPT/HCPCS: 27331; 27385; 12002; 36415; 73562; 73701; 80048; 85025; 90471; 90715; 96365; 96367; 96375; 97161; 97165; 99285; A4216; G0378; J0131; J0330; J0690; J1100; J1170; J1200; J2250; J2405; J2704; J2795; J3010; J3370; J7030; Q9967

== ENCOUNTER 2023-12-31 06:00 | Outpatient (RCR) | payer MEDICARE, MEDICAID, SELFPAY | END 2024-01-24 23:59 | disposition home or self-care (01) | LOC: TPT 06:00 | PROVIDERS: Visit Provider Student in an Organized Health Care Education/Training Program | DX: Z98.890 Other specified postprocedural states (principal) | CPT/HCPCS: 97110; 97162 ==

== ENCOUNTER 2024-01-25 06:00 | Outpatient (RCR) | payer MEDICARE, MEDICAID, SELFPAY | END 2024-02-23 23:59 | disposition home or self-care (01) | LOC: TPT 06:00 | PROVIDERS: Visit Provider Student in an Organized Health Care Education/Training Program | DX: S76.101D Unspecified injury of right quadriceps muscle, fascia and tendon, subsequent encounter (principal); X58.XXXD Exposure to other specified factors, subsequent encounter | CPT/HCPCS: 97110 ==

== ENCOUNTER → 2024-02-26 09:26 | Outpatient (BNVA) | payer MEDICARE, MEDICAID, SELFPAY | PROVIDERS: PCP Nurse Practitioner Family; Visit Provider Physician Assistant | DX: Z98.890 Other specified postprocedural states (principal); S81.011A Laceration without foreign body, right knee, initial encounter; S76.121A Laceration of right quadriceps muscle, fascia and tendon, initial encounter; X58.XXXA Exposure to other specified factors, initial encounter | CPT/HCPCS: 99024 ==